=== PATIENT | female | born 1995 | race Caucasian/White ===

== ENCOUNTER 2017-08-25 10:36 | Emergency (ER) | payer BC ==
[2017-08-25 10:56] VITALS: BP 141/75
--- NOTE | 2017-08-25 11:11 | UC ---
Respiratory Complaint HPI - HPI Summary HPI Summary: Patient is an otherwise healthy 22 old female presenting to the with chief complaint of sinus congestion, nasal drainage, chest congestion and cough 1 month. She is not a taken anything [id number] for relief. She endorses green nasal drainage. Denies any fevers, sweats, chills P she is otherwise healthy, and takes Ritalin for ADHD. She does not endorse any excess fatigue and denies any abdominal pain. Denies any urinary symptoms or back pain. She denies any known sick contacts or travel. - History of Current Complaint Hx Obtained From: Patient Hx Last Menstrual Period: 02/21/15 ?: No Onset/Duration: Sudden Onset Timing: Constant Severity Initially: Mild Severity Currently: Mild Pain Intensity: 0 Pain Scale Used: 0-10 Numeric Character: Cough: Productive Associated Signs And Symptoms: Positive: Nasal Congestion, Sinus Discomfort - Risk Factors Pulmonary Embolism Risk Factors: Negative Cardiac Risk Factors: Negative Pseudomonas Risk Factors: Negative Tuberculosis Risk Factors: Negative <Isabel Montanez - Last Filed: 08/25/17 11:07> <Bibi Spivey - Last Filed: 08/25/17 11:25> - History of Current Complaint Chief Complaint: UCRespiratory Stated Complaint: COUGH CONGESTION Time Seen by Provider: 08/25/17 11:01 - Allergies/Home Medications Allergies/Adverse Reactions: Allergies Allergy/AdvReac Type Severity Reaction Status Date / Time No Known Allergies Allergy Unverified 08/25/17 10:56 PMH/Surg Hx/FS Hx/Imm Hx Previously Healthy: Yes - Surgical History Surgical History: Yes Surgery Procedure, Year, and Place: PLATE LT CLAV[place] 10/2012-[facility] NOSE 2011 - Family History Known Family History: Positive: None - Social History Occupation: Employed Full-time - Is Alcohol Use: Rare Substance Use Type: None Smoking Status (MU): Never Smoked Tobacco Have You Smoked in the Last Year: No - Immunization History Most Recent Influenza Vaccination: [id number] Vaccination Up to Date: Yes <Isabel Montanez - Last Filed: 08/25/17 11:07> Review of Systems Constitutional: Negative Skin: Negative Eyes: Negative ENT: Nasal Discharge, Sinus Congestion, Sinus Pain/Tenderness Respiratory: Cough Motor: Negative Neurovascular: Negative Neurological: Negative Is Patient Immunocompromised?: No All Other Systems Reviewed And Are Negative: Yes <Isabel Montanez - Last Filed: 08/25/17 11:07> Physical Exam Triage Information Reviewed: Yes Appearance: Well-Appearing, Well-Nourished Vital Signs: Initial Vital Signs Temp 98.9 F 08/25/17 10:53 Pulse 71 08/25/17 10:53 Resp 18 08/25/17 10:53 BP 141/75 08/25/17 10:53 Pulse Ox 99 08/25/17 10:53 Vital Signs Reviewed: Yes Eye Exam: Normal Eyes: Positive: Conjunctiva Clear ENT: Positive: Nasal congestion, Nasal drainage, Sinus tenderness, Uvula midline Neck exam: Normal Neck: Positive: Supple, No Lymphadenopathy Respiratory Exam: Normal Respiratory: Positive: Chest non-tender, Lungs clear Cardiovascular Exam: Normal Cardiovascular: Positive: RRR Musculoskeletal Exam: Normal Musculoskeletal: Positive: Strength Intact Neurological Exam: Normal Neurological: Positive: Alert Psychological: Positive: Normal Response To Family Skin Exam: Normal <Isabel Montanez - Last Filed: 08/25/17 11:07> Vital Signs: Initial Vital Signs Temp 98.9 F 08/25/17 10:53 Pulse 71 08/25/17 10:53 Resp 18 08/25/17 10:53 BP 141/75 08/25/17 10:53 Pulse Ox 99 08/25/17 10:53 <Bibi Spivey - Last Filed: 08/25/17 11:25> Diagnostic Evaluation - Laboratory O2 Sat by Pulse Oximetry: 99 <Isabel Montanez - Last Filed: 08/25/17 11:07> Respiratory Course/Dx - Course Course Of Treatment: Nasal drainage, congestion and cough 1 month. Denies any known fevers, sweats, chills. Denies any excess fatigue. She has not tried anything [id number]. Lungs are clear to auscultation bilaterally. Regular rate and rhythm. Vital signs are stable on arrival. She is given Augmentin for sinus pressure and pain on palpation. Flonase given to open up nasal passageways. Tessalon for cough. She will return for any worsening or changing symptoms. She'll follow back up with [facility]. - Differential Dx/Diagnosis Provider Diagnoses: Sinusitis <Isabel Montanez - Last Filed: 08/25/17 11:07> Discharge - Sign-Out/Discharge Documenting (check all that apply): Discharge/Admit/Transfer - Billing Disposition and Condition Condition: STABLE Disposition: HOME <Isabel Montanez - Last Filed: 08/25/17 11:07> - Billing Disposition and Condition Condition: STABLE Disposition: HOME <Bibi Spivey - Last Filed: 08/25/17 11:25> - Discharge Plan Condition: Stable Disposition: HOME Prescriptions: Amoxicillin/Clavulanate TAB* [Augmentin TAB 875*] 875 mg PO BID #14 tab Benzonatate CAP* [Tessalon CAP*] 100 mg PO TID #21 cap Fluticasone NASAL SPRAY 50MCG* [Flonase NASAL SPRAY 50MCG*] 2 spray BOTH NARES DAILY #1 btl Patient Education Materials: Sinusitis (ED) Referrals: Thu Blandon MD [Primary Care Provider] - Additional Instructions: Follow-up with her PCP For any worsening or changing symptoms, return to the UC immediately If you develop any fevers, sweats, chills, return to the UC Flonase in both nares as needed for nasal congestion Augmentin twice daily 7 days Tessalon is a cough medication and may be used up to 3 times daily You may also use Robitussin in addition Attestation Statement User Type: Provider - I was available for consult. This patient was seen by the JEFFREY. The patient was not presented to, seen by, or examined by me. -Joleen <Bibi Spivey - Last Filed: 08/25/17 11:25>
== END 2017-08-25 11:12 | disposition home or self-care (01) ==
LOC: UCEAST 10:36
DX: J32.9 Chronic sinusitis, unspecified (principal)
CPT/HCPCS: 99212; G0463

== ENCOUNTER 2018-04-04 11:44 | Emergency (ER) | payer BC ==
[2018-04-04 12:19] VITALS: BP 131/68
--- NOTE | 2018-04-04 12:24 | UC ---
Throat Pain/Nasal Cheo HPI - HPI Summary HPI Summary: Pt presents with 7 days of head congestion, sore throat, PND. Pt states ears plugged and popping. No fevers. No rash. No n/v/d. Pt states this am woke with erythema left ear, +injection, yellow discharge. No OTC meds + sick contact Pt's medications reviewed this visit not per pt - History of Current Complaint Chief Complaint: UCRespiratory Stated Complaint: EYE ISSUE SORE THROAT COUGH Time Seen by Provider: 04/04/18 12:16 Hx Obtained From: Patient Hx Last Menstrual Period: 03/15/18 Pain Intensity: 4 - Allergies/Home Medications Allergies/Adverse Reactions: Allergies Allergy/AdvReac Type Severity Reaction Status Date / Time No Known Allergies Allergy Unverified 04/04/18 12:19 Home Medications: Home Medications Methylphenidate TAB* [Ritalin TAB*] 10 mg PO BID PRN 04/04/18 [History Confirmed 04/04/18] PMH/Surg Hx/FS Hx/Imm Hx Previously Healthy: Yes - Surgical History Surgical History: Yes Surgery Procedure, Year, and Place: PLATE LT [place] 10/2012-[facility]SE 2011 - Family History Known Family History: Positive: Non-Contributory - Social History Occupation: Student Alcohol Use: None Substance Use Type: None Smoking Status (MU): Never Smoked Tobacco Have You Smoked in the Last Year: No - Immunization History Most Recent Influenza Vaccination: [id number] Vaccination Up to Date: Yes Review of Systems All Other Systems Reviewed And Are Negative: Yes Skin: Positive: Negative Eyes: Positive: Drainage, Eye Redness ENT: Positive: Sore Throat, Nasal Discharge, Sinus Congestion, Sinus Pain/ Tenderness Respiratory: Positive: Negative Physical Exam - Summary Physical Exam Summary: Vital Signs Reviewed: Yes A+Ox3, no distress, congsetion Eyes: DANNY. EOM intact and full, left eye injected, + yellow crusted secretion medial canthus, crisp fundocscopic. no photophobia ENT: Hearing grossly normal scant fluid right TM, left TM wnl,, turbiantes inflammed, + PND mmoist, uvula midline, no exudate, no erythema: max sinus discomfort R>L Neck: Positive: Supple Respiratory: Positive: No respiratory distress, No accessory muscle use + CTA throughout no w/r Cardiovascular: RRR nl s1, s2 no m/r CBT <2 sec abd soft + BS nt/nd no guarding, no distension Musculoskeletal Exam: ALMANZA x 4 without difficulty Strength Intact, ROM Intact Neurological: Positive: Alert, + sensation throughoutPsychological: Positive: Normal Response To Family Skin: Positive: no rash, no ecchymosis Vital Signs: Initial Vital Signs Temp 98.5 F 04/04/18 12:15 Pulse 79 04/04/18 12:15 Resp 14 04/04/18 12:15 BP 131/68 04/04/18 12:15 Pulse Ox 100 04/04/18 12:15 Throat Pain/Nasal Course/Dx - Course Course Of Treatment: Pt with 7 days progressive sinus congestion, PND and ear fullness Pt with left eye injection today. Rx abx. flonase. poytrim. hyderate. sercretion precaution. return precaution - Differential Dx/Diagnosis Provider Diagnosis: Rhinosinusitis, Conjunctivitis, left eye Discharge - Sign-Out/Discharge Documenting (check all that apply): Patient Departure All imaging exams completed and their final reports reviewed: No Studies - Discharge Plan Condition: Stable Disposition: HOME Prescriptions: Amoxicillin PO (*) [Amoxicillin 500 MG CAP*] 500 mg PO Q12H #20 cap Fluticasone NASAL SPRAY 50MCG* [Flonase NASAL SPRAY 50MCG*] 2 spray BOTH NARES DAILY #1 btl Polymyx/Trimethoprim OPTH* [Polytrim OPHTH*] 2 drop BOTH EYES Q6HR #1 btl Patient Education Materials: Rhinosinusitis (ED) Referrals: Thu Blandon MD [Primary Care Provider] - Additional Instructions: - Stay well hydrated. Drink plenty of non-alcoholic, non-caffinated beverages. - Alternate ibuprofen (Advil, Motrin) 600mg and Tylenol every 3 hours for pain or fever. Take with food. Do NOT take for more than 4-5 days. - These infections are spread by secretions - do NOT share eating or drinking utensils - clean items you share with other people such as cell phones, computer mouse, TV remote, computer tablets,etc. Once you have been antibiotics for 2 days, change your toothbrush and your pillowcase. - Apply eye drops to your affect eye as prescribed - 2 drops, 3 times a day for 5 days - get plenty of restful sleep - humidify the air in the room where you sleep - boil water, run a hot steam shower, vaporizer, cups of water by heat register - okay to take over the counter decongestant and cough medication - use nasal spray as prescribed - contact your doctor or return with questions or concerns - Billing Disposition and Condition Condition: STABLE Disposition: Home
== END 2018-04-04 12:41 | disposition home or self-care (01) ==
LOC: UCEAST 11:44
DX: J32.9 Chronic sinusitis, unspecified (principal); H10.9 Unspecified conjunctivitis
CPT/HCPCS: 99212; G0463

== ENCOUNTER 2018-10-24 21:07 | Emergency (ER) | payer BC ==
[2018-10-24 21:27] VITALS: BP 140/83
[2018-10-24] MEDS ORDERED: Amoxicillin PO (*) 500 MG CAP PO ONE (22:16)
--- NOTE | 2018-10-24 22:20 | UC ---
UC General HPI - HPI Summary HPI Summary: SORE THROAT AND EARS FEEL PLUGGED X 2 DAYS. - History of Current Complaint Chief Complaint: UCGeneralIllness Stated Complaint: SORE THROAT Time Seen by Provider: 10/24/18 22:13 Hx Obtained From: Patient Hx Last Menstrual Period: 10/24/18 Onset/Duration: Gradual Onset Timing: Constant Pain Intensity: 6 Associated Signs & Symptoms: Negative: Fever - Allergy/Home Medications Allergies/Adverse Reactions: Allergies Allergy/AdvReac Type Severity Reaction Status Date / Time No Known Allergies Allergy Verified 10/24/18 21:27 PMH/Surg Hx/FS Hx/Imm Hx - Additional Past Medical History Additional PMH: ADHD - Surgical History Surgical History: Yes Surgery Procedure, Year, and Place: PLATE LT [place] 10/2012-[facility]SE 2011. 07/2018 ankle surgery - Family History Known Family History: Positive: None, Non-Contributory - Social History Alcohol Use: None Substance Use Type: None Smoking Status (MU): Never Smoked Tobacco Have You Smoked in the Last Year: No - Immunization History Most Recent Influenza Vaccination: [id number] Vaccination Up to Date: Yes Review of Systems All Other Systems Reviewed And Are Negative: Yes Constitutional: Negative: Fever ENT: Positive: Sore Throat, Ear Ache. Negative: Sinus Congestion Physical Exam Triage Information Reviewed: Yes Appearance: Well-Appearing Vital Signs: Initial Vital Signs Temp 99.2 F 10/24/18 21:23 Pulse 83 10/24/18 21:23 Resp 16 10/24/18 21:23 BP 140/83 10/24/18 21:23 Pulse Ox 100 10/24/18 21:23 Vital Signs Reviewed: Yes Eyes: Positive: Conjunctiva Clear ENT: Positive: Pharyngeal erythema, TMs normal. Negative: Nasal congestion, Nasal drainage Neck: Positive: Supple, Nontender, Enlarged Nodes @ - PERITONSILAR Respiratory: Positive: Lungs clear, Normal breath sounds Cardiovascular: Positive: RRR, No Murmur Abdomen Description: Positive: Nontender, No Organomegaly, Soft Bowel Sounds: Positive: Present Musculoskeletal: Positive: ROM Intact Neurological: Positive: Alert Psychological: Positive: Age Appropriate Behavior Skin Exam: Normal Diagnostics - Laboratory Lab Results: + RAPID STREP Course/Dx - Diagnoses Provider Diagnosis: Strep pharyngitis Discharge - Sign-Out/Discharge Documenting (check all that apply): Patient Departure All imaging exams completed and their final reports reviewed: No Studies - Discharge Plan Condition: Stable Disposition: HOME Prescriptions: Amoxicillin PO (*) [Amoxicillin 500 MG CAP*] 500 mg PO Q12H 10 Days #20 cap Patient Education Materials: Strep Throat (DC) Referrals: RUDY Wagoner [Medical Doctor] - Additional Instructions: FOLLOW UP IF NOT BETTER IN 5-7 DAYS OR SOONER IF WORSE. - Billing Disposition and Condition Condition: STABLE Disposition: Home
== END 2018-10-24 22:27 | disposition home or self-care (01) ==
LOC: UCCORT 21:07
DX: J02.0 Streptococcal pharyngitis (principal)
CPT/HCPCS: 87651; 99212; A9270-GY; G0463